=== PATIENT | female | born 1990 | race African-American/Black ===

== ENCOUNTER 2023-09-08 15:16 | Emergency (ER) | payer OTHER ==
[2023-09-08] MEDS ORDERED: levETIRAcetam 500 MG/5 ML INJECTION VIAL IVPB ONE (16:14)
[2023-09-08 16:40] VITALS: BMI 25.0
[2023-09-08] MEDS: levETIRAcetam 500 MG/5 ML INJECTION VIAL IVPB ONE (16:40)
[2023-09-08] MEDS: SODIUM CHLORIDE 0.9% 500 ML INFUS.BAG IV ONE (16:40)
[2023-09-08 16:42] LABS: BASO % 0.3 % (0-2.0); EOS % 0.5 % (0-4.5); HEMATOCRIT 36.4 % (32.4-45.2); LYMPH % 8.3 % (8-40); MCH 27.7 pg (25.7-33.7); MEAN PLT VOLUME 7.5 fl (7.5-11.1); MONO % 6.5 % (3.8-10.2); NEUT % 84.4 % (42.8-82.8); PLATELET COUNT 388 10^3/uL (134-434); RBC 4.34 M/mm3 (3.60-5.2); RDW 12.9 % (11.6-15.6); WHITE BLOOD COUNT 12.8 K/mm3 (4.0-10.0)
[2023-09-08 17:08] LABS: BLOOD UREA NITROGEN 14.5 mg/dL (7-18); CALCIUM 9.3 mg/dL (8.5-10.1)
[2023-09-08 17:11] LABS: CREATININE 0.8 mg/dL (0.55-1.3)
[2023-09-08 17:13] LABS: BILIRUBIN,TOTAL 0.4 mg/dL (0.2-1); TOT PROT 7.2 g/dl (6.4-8.2)
[2023-09-08 18:50] VITALS: BP 144/86; PULSE 76; RESP 19; TEMP 98.6
== END 2023-09-08 19:15 | disposition home or self-care (01) ==
LOC: JER 15:16
PROC: 3E033GC Introduction of Other Therapeutic Substance into Peripheral Vein, Percutaneous Approach (ICD-10-PCS; principal; 2023-09-08)
DX: G40.409 Other generalized epilepsy and epileptic syndromes, not intractable, without status epilepticus (principal)
CPT/HCPCS: 36415; 70450-TC; 80053; 82550; 82553; 85025; 93005; 93010; 99284-25